=== PATIENT | female | born 1965 | race Caucasian/White ===

== ENCOUNTER 2021-02-09 12:13 | Emergency (ER) | payer OTHER ==
[2021-02-09 13:53] LABS: HEMOGLOBIN 12.3 gm/dl (12.3-15.3); RED BLOOD COUNT 4.56 M/UL (4.00-5.10); WHITE BLOOD COUNT 10.1 K/UL (4.5-11.0)
[2021-02-09 14:18] LABS: BUN/CREATININE RATIO 8 (0-10)
[2021-02-09] MEDS ORDERED: ZOFRAN ODT 4 MG4 MG SL (15:12)
== END 2021-02-09 15:20 | disposition home or self-care (01) ==
LOC: ER1 12:13
PROVIDERS: Physician Assistant
DX: R05 Cough (principal); R11.10 Vomiting, unspecified; Z90.49 Acquired absence of other specified parts of digestive tract; Z90.710 Acquired absence of both cervix and uterus; Z88.5 Allergy status to narcotic agent; Z20.822 Contact with and (suspected) exposure to COVID-19
CPT/HCPCS: 71045; 80053; 85025; 99283; U0003